=== PATIENT | female | born 1935 | race Asian ===

== ENCOUNTER 2016-04-15 15:52 | Inpatient (IN) | payer MEDICARE, OTHER ==
[~2016-04-15] VITALS: Ht 147.3 cm; Wt 69.0 kg
[~2016-04-15 15:52] MED LIST: ACET-66 PO; ATOR10TA84 PO; CALC-590 PO; GABA-531 PO; GLUC500T12 PO; MULTI VIT PO; TRAM50TA4 PO
[2016-04-15 17:14] LABS: BASOPHILS % (AUTO) 0.3 % (0.0-2.0); EOSINOPHILS % (AUTO) 8.7 % (1.0-6.0); HEMATOCRIT 38.9 % (36-46); HEMOGLOBIN 12.9 g/dL (12.0-16.0); LYMPHOCYTES # (AUTO) 2.1 K/uL (1.0-4.8); MEAN CORPUSCULAR HEMOGLOBIN 32.9 pg (26.0-34.0); MEAN CORPUSCULAR HGB CONC 33.3 G/dL (31.0-37.0); MEAN CORPUSCULAR VOLUME 99 fL (80-100); MONOCYTES % (AUTO) 15.5 % (2.0-9.0); NEUTROPHILS % (AUTO) 44.5 % (40.0-70.0); PLATELET COUNT (AUTO) 152 K/uL (150-450); RED BLOOD CELL COUNT(AUTO) 3.94 MIL/uL (4.00-5.20); RED CELL DISTRIBUTION WIDTH 13.5 % (11.5-14.5); WHITE BLOOD COUNT (AUTO) 6.8 K/uL (4.5-11.0)
[2016-04-15 17:30] LABS: CALCIUM, TOTAL 8.8 mg/dL (8.8-10.5); CREATININE 1.09 mg/dL (0.60-1.30); POTASSIUM 3.8 mmol/L (3.5-5.1)
[2016-04-15 17:36] LABS: ALBUMIN 2.9 g/dL (3.4-5.0); BILIRUBIN,TOTAL 0.3 mg/dL (0.1-1.0)
[2016-04-15 18:36] LABS: APPEARANCE,URINE CLOUDY (CLEAR); GLUCOSE, URINE (UA) NEGATIVE (NEGATIVE); KETONES,URINE NEGATIVE (NEGATIVE); LEUKOCYTE ESTERASE ,URINE SMALL (NEGATIVE); OCCULT BLOOD,URINE NEGATIVE (NEGATIVE); PH,URINE 6.5 (5.0-8.0); PROTEIN,URINE NEGATIVE (NEGATIVE)
[2016-04-15 18:42] LABS: ADD UA MICROSCOPIC YES; RBC,URINE 0-2 /HPF (0-2); SQUAMOUS EPITHELIAL CELL,UR Few /LPF (None Seen)
[2016-04-15] MEDS ORDERED: CEFTAROLINE FOSAMIL 400 MG in DEXTROSE 5%-WATER 250 ML IV ONE (20:15)
[2016-04-15] MEDS ORDERED: *CLINICAL-CEFTAROLINE DOSING CLINICAL ONE (20:45)
[2016-04-15] MEDS ORDERED: ONDANSETRON HCL 4 MG/2 ML VIAL IVP PRN (20:45)
[2016-04-15] MEDS ORDERED: ZOLPIDEM TARTRATE 10 MG TABLET PO PRN (20:45)
[2016-04-15 21:40] VITALS: BP 121/89
[2016-04-15] MEDS: GABAPENTIN 300 MG CAPSULE PO SCH (23:08)
[2016-04-15] MEDS: ATORVASTATIN CALCIUM 10 MG TABLET PO SCH (23:09)
[2016-04-15] MEDS: HEPARIN SODIUM,PORCINE 5,000 UNITS/ML VIAL SQ SCH (23:09)
[2016-04-15] MEDS: ACETAMINOPHEN 325 MG TABLET PO PRN (23:09)
[2016-04-15 23:53] VITALS: BP 136/56
[2016-04-16 04:30] VITALS: BP 113/51
[2016-04-16 06:37] LABS: BASOPHILS # (AUTO) 0.02 K/uL (0.00-0.20); BASOPHILS % (AUTO) 0.3 % (0.0-2.0); EOSINOPHILS # (AUTO) 0.57 K/uL (0.00-0.70); EOSINOPHILS % (AUTO) 9.36 % (1.0-6.0); HEMATOCRIT 32.7 % (36-46); HEMOGLOBIN 11.1 g/dL (12.0-16.0); LYMPHOCYTES # (AUTO) 1.7 K/uL (1.0-4.8); LYMPHOCYTES % (AUTO) 28.4 % (22.0-44.0); MEAN CORPUSCULAR HEMOGLOBIN 33.4 pg (26.0-34.0); MEAN CORPUSCULAR HGB CONC 34.1 G/dL (31.0-37.0); MEAN CORPUSCULAR VOLUME 98 fL (80-100); MONOCYTES % (AUTO) 16.4 % (2.0-9.0); NEUTROPHILS # (AUTO) 2.8 K/uL (1.8-7.7); NEUTROPHILS % (AUTO) 45.5 % (40.0-70.0); PLATELET COUNT (AUTO) 140 K/uL (150-450); RED BLOOD CELL COUNT(AUTO) 3.33 MIL/uL (4.00-5.20); RED CELL DISTRIBUTION WIDTH 13.3 % (11.5-14.5); WHITE BLOOD COUNT (AUTO) 6.1 K/uL (4.5-11.0)
[2016-04-16 06:53] LABS: ALBUMIN 2.4 g/dL (3.4-5.0); BILIRUBIN,TOTAL 0.6 mg/dL (0.1-1.0); CALCIUM, TOTAL 8.3 mg/dL (8.8-10.5); CREATININE 1.2 mg/dL (0.60-1.30); POTASSIUM 3.5 mmol/L (3.5-5.1); TOTAL PROTEIN, SERUM 6.5 g/dL (6.4-8.2)
[2016-04-16] MEDS: HEPARIN SODIUM,PORCINE 5,000 UNITS/ML VIAL SQ SCH ×3 (08:09→23:53)
[2016-04-16] MEDS: GABAPENTIN 300 MG CAPSULE PO SCH (08:09)
[2016-04-16] MEDS: PANTOPRAZOLE SODIUM 40 MG DR TABLET PO SCH (08:09)
[2016-04-16 08:10] VITALS: BP 101/46
[2016-04-16] MEDS ORDERED: SODIUM CHLORIDE 0.9% 500 ML IV ONE (09:00)
[2016-04-16] MEDS: CEFTAROLINE FOSAMIL 400 MG in DEXTROSE 5%-WATER 250 ML IV SCH ×2 (09:06→20:32)
[2016-04-16] MEDS: FUROSEMIDE 20 MG/2 ML VIAL IVP SCH ×2 (10:03→20:33)
[2016-04-16] MEDS: POTASSIUM CHLORIDE 10% 40 MEQ/30 ML LIQUID UDCUP PO SCH (10:03)
[2016-04-16 15:09] VITALS: BP 114/43
[2016-04-16 19:16] VITALS: BP 122/59
[2016-04-16] MEDS: ATORVASTATIN CALCIUM 10 MG TABLET PO SCH (20:32)
[2016-04-16] MEDS: ACETAMINOPHEN 325 MG TABLET PO PRN (20:33)
[2016-04-16 23:21] VITALS: BP 121/52
[2016-04-16] MEDS: OxyCODONE HCL/ACETAMINOPHEN 5-325 MG TABLET PO PRN (23:55)
[2016-04-17 04:43] VITALS: BP 117/47
[2016-04-17 06:34] LABS: BASOPHILS % (AUTO) 0.4 % (0.0-2.0); EOSINOPHILS % (AUTO) 9.2 % (1.0-6.0); HEMATOCRIT 33.9 % (36-46); HEMOGLOBIN 11.1 g/dL (12.0-16.0); LYMPHOCYTES # (AUTO) 2.2 K/uL (1.0-4.8); LYMPHOCYTES % (AUTO) 32.9 % (22.0-44.0); MEAN CORPUSCULAR HEMOGLOBIN 32.9 pg (26.0-34.0); MEAN CORPUSCULAR HGB CONC 32.9 G/dL (31.0-37.0); MEAN CORPUSCULAR VOLUME 100 fL (80-100); MONOCYTES # (AUTO) 1.1 K/uL (0.1-1.0); MONOCYTES % (AUTO) 16.8 % (2.0-9.0); NEUTROPHILS # (AUTO) 2.7 K/uL (1.8-7.7); NEUTROPHILS % (AUTO) 40.7 % (40.0-70.0); PLATELET COUNT (AUTO) 147 K/uL (150-450); RED BLOOD CELL COUNT(AUTO) 3.39 MIL/uL (4.00-5.20); RED CELL DISTRIBUTION WIDTH 13.9 % (11.5-14.5); WHITE BLOOD COUNT (AUTO) 6.6 K/uL (4.5-11.0)
[2016-04-17 06:55] LABS: ALBUMIN 2.3 g/dL (3.4-5.0); BILIRUBIN,TOTAL 0.5 mg/dL (0.1-1.0); CALCIUM, TOTAL 8.3 mg/dL (8.8-10.5); CREATININE 1.37 mg/dL (0.60-1.30); MAGNESIUM 2.1 mg/dL (1.80-2.40); POTASSIUM 3.9 mmol/L (3.5-5.1); TOTAL PROTEIN, SERUM 6.4 g/dL (6.4-8.2)
[2016-04-17 07:38] VITALS: BP 119/80
[2016-04-17 07:49] LABS: RBC MORPHOLOGY COMMENT ABNORMAL RBC MORPH
[2016-04-17] MEDS: OxyCODONE HCL/ACETAMINOPHEN 5-325 MG TABLET PO PRN (08:01)
[2016-04-17] MEDS: PANTOPRAZOLE SODIUM 40 MG DR TABLET PO SCH (08:02)
[2016-04-17] MEDS: FUROSEMIDE 20 MG/2 ML VIAL IVP SCH (08:02)
[2016-04-17] MEDS: POTASSIUM CHLORIDE 10% 40 MEQ/30 ML LIQUID UDCUP PO SCH (08:02)
[2016-04-17] MEDS: CEFTAROLINE FOSAMIL 400 MG in DEXTROSE 5%-WATER 250 ML IV SCH (08:03)
[2016-04-17] MEDS: HEPARIN SODIUM,PORCINE 5,000 UNITS/ML VIAL SQ SCH (08:03)
[2016-04-17] MEDS ORDERED: clindamycin PO (11:04)
[2016-04-17 11:19] VITALS: BP 99/43
== END 2016-04-17 14:40 | disposition home or self-care (01) | DRG 603 ==
LOC: EMS 15:55 → 6N 20:45
PROVIDERS: ADMIT Hospitalist; ATTEND Hospitalist
DX: L03.115 Cellulitis of right lower limb (principal); E44.0 Moderate protein-calorie malnutrition; I50.32 Chronic diastolic (congestive) heart failure; N39.0 Urinary tract infection, site not specified; L03.116 Cellulitis of left lower limb; E66.9 Obesity, unspecified; E78.00 Pure hypercholesterolemia, unspecified; E78.5 Hyperlipidemia, unspecified; I27.2 Other secondary pulmonary hypertension; I11.0 Hypertensive heart disease with heart failure; L29.9 Pruritus, unspecified; N28.9 Disorder of kidney and ureter, unspecified; T50.2X5A Adverse effect of carbonic-anhydrase inhibitors, benzothiadiazides and other diuretics, initial encounter; Z79.899 Other long term (current) drug therapy; Z68.38 Body mass index [BMI] 38.0-38.9, adult; Y92.89 Other specified places as the place of occurrence of the external cause; Y93.89 Activity, other specified; Y99.8 Other external cause status
CPT/HCPCS: 83735; 87086; 93005; 93306; 96374; 99285; J0712; J1644; J1940; J7040; J7060

== ENCOUNTER → 2016-06-04 | Outpatient (CLI) | payer MEDICARE, OTHER ==
[~2016-06-04] MED LIST changes: -GABA-531 PO; -TRAM50TA4 PO; +clindamycin PO
[2016-06-04 12:27] LABS: BASOPHILS % (AUTO) 0.6 % (0.0-2.0); EOSINOPHILS % (AUTO) 7.1 % (1.0-6.0); HEMATOCRIT 40.7 % (36-46); HEMOGLOBIN 13.5 g/dL (12.0-16.0); LYMPHOCYTES # (AUTO) 2.1 K/uL (1.0-4.8); LYMPHOCYTES % (AUTO) 33.7 % (22.0-44.0); MEAN CORPUSCULAR HGB CONC 33.3 G/dL (31.0-37.0); MEAN CORPUSCULAR VOLUME 99 fL (80-100); MONOCYTES # (AUTO) 0.9 K/uL (0.1-1.0); MONOCYTES % (AUTO) 14.1 % (2.0-9.0); NEUTROPHILS # (AUTO) 2.8 K/uL (1.8-7.7); NEUTROPHILS % (AUTO) 44.5 % (40.0-70.0); PLATELET COUNT (AUTO) 139 K/uL (150-450); RED BLOOD CELL COUNT(AUTO) 4.11 MIL/uL (4.00-5.20); RED CELL DISTRIBUTION WIDTH 13.8 % (11.5-14.5); WHITE BLOOD COUNT (AUTO) 6.3 K/uL (4.5-11.0)
[2016-06-04 12:44] LABS: ALBUMIN 3.2 g/dL (3.4-5.0); BILIRUBIN,TOTAL 0.8 mg/dL (0.1-1.0); CALCIUM, TOTAL 8.8 mg/dL (8.8-10.5); CHOL/HDL RATIO 2.1 (3.9-5.7); CREATININE 0.99 mg/dL (0.60-1.30); MAGNESIUM 2.1 mg/dL (1.80-2.40); POTASSIUM 3.7 mmol/L (3.5-5.1); THYROID STIMULATING HORMONE 1.76 uIU/mL (0.36-3.74); TOTAL PROTEIN, SERUM 8.3 g/dL (6.4-8.2)
[2016-06-04 12:46] LABS: HEMOGLOBIN A1C 5.6 % (4.5-6.2)
== END | disposition home or self-care (01) ==
LOC: LABPV 09:55
PROVIDERS: ATTEND Internal Medicine Cardiovascular Disease
DX: I11.0 Hypertensive heart disease with heart failure (principal); I50.9 Heart failure, unspecified; E11.8 Type 2 diabetes mellitus with unspecified complications; E55.9 Vitamin D deficiency, unspecified
CPT/HCPCS: 82306; 83036; 83735; 84439; 84443

== ENCOUNTER → 2016-07-13 | Outpatient (CLI) | payer MEDICARE, OTHER | END | disposition home or self-care (01) | LOC: RADPV 15:34 | PROVIDERS: ATTEND Internal Medicine | DX: M50.30 Other cervical disc degeneration, unspecified cervical region (principal); M47.812 Spondylosis without myelopathy or radiculopathy, cervical region; M43.12 Spondylolisthesis, cervical region; M12.88 Other specific arthropathies, not elsewhere classified, other specified site; M25.78 Osteophyte, vertebrae; M53.82 Other specified dorsopathies, cervical region; M25.512 Pain in left shoulder; M19.012 Primary osteoarthritis, left shoulder; M25.812 Other specified joint disorders, left shoulder; M75.102 Unspecified rotator cuff tear or rupture of left shoulder, not specified as traumatic; M81.8 Other osteoporosis without current pathological fracture | CPT/HCPCS: 72040 ==

== ENCOUNTER → 2016-11-30 | Outpatient (CLI) | payer MEDICARE, OTHER | END | disposition home or self-care (01) | LOC: RADMN 13:39 | PROVIDERS: ATTEND Internal Medicine | DX: M43.12 Spondylolisthesis, cervical region (principal); M50.321 Other cervical disc degeneration at C4-C5 level; M50.323 Other cervical disc degeneration at C6-C7 level; M48.02 Spinal stenosis, cervical region; M50.21 Other cervical disc displacement, high cervical region; M50.222 Other cervical disc displacement at C5-C6 level; M25.78 Osteophyte, vertebrae; M46.02 Spinal enthesopathy, cervical region | CPT/HCPCS: 72141 ==

== ENCOUNTER → 2016-12-21 | Outpatient (CLI) | payer MEDICARE, OTHER | END | disposition home or self-care (01) | LOC: RADPV 14:08 | PROVIDERS: ATTEND Internal Medicine | DX: M85.88 Other specified disorders of bone density and structure, other site (principal) | CPT/HCPCS: 77080 ==

== ENCOUNTER → 2018-08-21 | Outpatient (CLI) | payer MEDICARE, OTHER ==
[~2018-08-21] MED LIST changes: +ALBU8HFA IH; +ALEN70TA10 PO; +APIX2.5T PO; +ASPI-1182 PO; +BACL10TA PO; +BECL10.6 IH; +BIOT5000 PO; +CHOL200012 PO; +CYCL05OE OU; +ESOM20CA31 PO; +FOLI1 PO; +FURO20 PO; -GLUC500T12 PO; +LISI-661 PO; +METO25 PO; +ONDA4 PO; +OXYB5 PO; +PANT40TA25 PO; +PREG75 PO; -clindamycin PO
== END | disposition home or self-care (01) ==
LOC: RADPV 09:57
PROVIDERS: ATTEND Internal Medicine
DX: R09.89 Other specified symptoms and signs involving the circulatory and respiratory systems (principal)
CPT/HCPCS: 76536

== ENCOUNTER 2018-08-22 11:26 | Inpatient (IN) | payer MEDICARE, OTHER ==
[~2018-08-22] VITALS: Ht 144.8 cm; Wt 68.4 kg
[~2018-08-22 11:26] MED LIST changes: -APIX2.5T PO; -ESOM20CA31 PO; -METO25 PO; -ONDA4 PO; -PANT40TA25 PO
[2018-08-22] MEDS ORDERED: APIX2.5T PO (11:46)
[2018-08-22] MEDS ORDERED: METO25 PO (11:46)
[2018-08-22] MEDS ORDERED: ALBUTEROL SULFATE 2.5 MG/0.5 ML NEB SOLUTION NEB ONE ×2 (12:30→16:45)
[2018-08-22] MEDS ORDERED: IOVERSOL 320 MG/ML 100 ML VIAL ONE (12:31)
[2018-08-22] MEDS ORDERED: SODIUM CHLORIDE 0.9% 100 ML ONE (12:31)
[2018-08-22 12:52] LABS: BASOPHILS % (AUTO) 0.5 % (0.0-2.0); EOSINOPHILS % (AUTO) 2.2 % (1.0-6.0); HEMATOCRIT 33.2 % (36-46); HEMOGLOBIN 11.3 g/dL (12.0-16.0); LYMPHOCYTES # (AUTO) 1.8 K/uL (1.0-4.8); LYMPHOCYTES % (AUTO) 28.9 % (22.0-44.0); MEAN CORPUSCULAR HEMOGLOBIN 32.8 pg (26.0-34.0); MEAN CORPUSCULAR HGB CONC 33.9 G/dL (31.0-37.0); MEAN CORPUSCULAR VOLUME 97 fL (80-100); MONOCYTES # (AUTO) 0.7 K/uL (0.1-1.0); MONOCYTES % (AUTO) 11.8 % (2.0-9.0); NEUTROPHILS # (AUTO) 3.5 K/uL (1.8-7.7); NEUTROPHILS % (AUTO) 56.6 % (40.0-70.0); PLATELET COUNT (AUTO) 109 K/uL (150-450); RED BLOOD CELL COUNT(AUTO) 3.43 MIL/uL (4.00-5.20)
[2018-08-22 12:59] LABS: LIPASE 483 U/L (73-393)
[2018-08-22 13:01] LABS: INR 1.1 (0.9-1.1); PROTHROMBIN TIME 11.1 SEC (9.4-11.6)
[2018-08-22 13:14] LABS: B-TYPE NATRIURETIC PEPTIDE 566 pg/mL (0-100)
[2018-08-22 15:07] LABS: CALCIUM, TOTAL 8.4 mg/dL (8.8-10.5); CREATININE 1.37 mg/dL (0.60-1.30)
[2018-08-22 15:14] LABS: BILIRUBIN,TOTAL 0.4 mg/dL (0.1-1.0); TOTAL PROTEIN, SERUM 7.2 g/dL (6.4-8.2)
[2018-08-22] MEDS ORDERED: LEVOFLOXACIN 750 MG/D5% WATER 150 ML IV ONE (16:45)
[2018-08-22] MEDS ORDERED: MethylPREDNISolone SOD SUCC 125 MG/2 ML VIAL IVP ONE (16:45)
[2018-08-22] MEDS ORDERED: 0.9% SODIUM CHLORIDE 10 ML SYRINGE IVP PRN (17:00)
[2018-08-22] MEDS ORDERED: ONDANSETRON HCL 4 MG/2 ML VIAL IVP PRN (17:00)
[2018-08-22] MEDS ORDERED: PANTOPRAZOLE SODIUM 40 MG/VIAL IVP ONE (17:00)
[2018-08-22] MEDS ORDERED: ACETAMINOPHEN 325 MG TABLET PO PRN (17:00)
[2018-08-22 18:00] VITALS: BP 139/61
[2018-08-22] MEDS: PANTOPRAZOLE SODIUM 80 MG in SODIUM CHLORIDE 0.9% 100 ML IV SCH (18:54)
[2018-08-22 20:05] VITALS: BP 126/72
[2018-08-22 23:15] VITALS: BP 136/57
[2018-08-23] MEDS: PANTOPRAZOLE SODIUM 80 MG in SODIUM CHLORIDE 0.9% 100 ML IV SCH (03:49)
[2018-08-23 05:30] VITALS: BP 118/60
[2018-08-23 05:57] LABS: BASOPHILS % (AUTO) 0.1 % (0.0-2.0); EOSINOPHILS % (AUTO) 0 % (1.0-6.0); HEMATOCRIT 34.8 % (36-46); HEMOGLOBIN 11.7 g/dL (12.0-16.0); LYMPHOCYTES # (AUTO) 1.2 K/uL (1.0-4.8); LYMPHOCYTES % (AUTO) 22.3 % (22.0-44.0); MEAN CORPUSCULAR HEMOGLOBIN 32.7 pg (26.0-34.0); MEAN CORPUSCULAR HGB CONC 33.5 G/dL (31.0-37.0); MEAN CORPUSCULAR VOLUME 98 fL (80-100); MONOCYTES # (AUTO) 0.1 K/uL (0.1-1.0); MONOCYTES % (AUTO) 2.4 % (2.0-9.0); NEUTROPHILS % (AUTO) 75.2 % (40.0-70.0); PLATELET COUNT (AUTO) 120 K/uL (150-450); RED BLOOD CELL COUNT(AUTO) 3.57 MIL/uL (4.00-5.20)
[2018-08-23 06:29] LABS: ALBUMIN 2.7 g/dL (3.4-5.0); BILIRUBIN,TOTAL 0.4 mg/dL (0.1-1.0); CALCIUM, TOTAL 8.3 mg/dL (8.8-10.5); CREATININE 1.23 mg/dL (0.60-1.30); POTASSIUM 4.3 mmol/L (3.5-5.1); TOTAL PROTEIN, SERUM 6.8 g/dL (6.4-8.2)
[2018-08-23 07:31] VITALS: BP 112/66
[2018-08-23] MEDS ORDERED: MORPHINE SULFATE 2 MG/ML SYRINGE IVP PRN (09:00)
[2018-08-23] MEDS ORDERED: ONDANSETRON HCL 4 MG/2 ML VIAL IVP PRN (09:00)
[2018-08-23] MEDS ORDERED: ALBUTEROL SULFATE 2.5 MG/0.5 ML NEB SOLUTION NEB PRN (09:00)
[2018-08-23] MEDS: DOCUSATE SODIUM 250 MG CAPSULE PO SCH ×3 (09:00→20:42)
[2018-08-23] MEDS ORDERED: IPRATROPIUM BROMIDE 0.5 MG/2.5 ML NEB SOLUTION NEB PRN (09:00)
[2018-08-23] MEDS ORDERED: ZOLPIDEM TARTRATE 5 MG TABLET PO PRN (09:00)
[2018-08-23] MEDS ORDERED: 0.9% SODIUM CHLORIDE 10 ML SYRINGE IVP PRN (09:00)
[2018-08-23] MEDS ORDERED: BACLOFEN 10 MG TABLET PO PRN (09:15)
[2018-08-23] MEDS ORDERED: SODIUM CHLORIDE 0.9% 1,000 ML IV ONE ×2 (11:15→13:00)
[2018-08-23] MEDS: LISINOPRIL 10 MG TABLET PO SCH (12:00)
[2018-08-23 12:31] VITALS: BP 139/55
[2018-08-23] MEDS: METOPROLOL TARTRATE 25 MG TABLET PO SCH (12:46)
[2018-08-23] MEDS: FUROSEMIDE 20 MG TABLET PO SCH (12:46)
[2018-08-23] MEDS: BECLOMETHASONE DIPR HFA 40 MCG/PUFF 10.6 GM INHALER IH SCH ×2 (12:47→20:43)
[2018-08-23] MEDS: CycloSPORINE 0.05% 0.4 ML OPHTHALMIC EMULSION OU SCH ×2 (12:47→20:42)
[2018-08-23] MEDS: APIXABAN 2.5 MG TABLET PO SCH ×2 (12:47→20:42)
[2018-08-23] MEDS: BIOTIN 5 MG CAPSULE PO SCH (12:47)
[2018-08-23] MEDS: FOLIC ACID 1 MG TABLET PO SCH (12:47)
[2018-08-23] MEDS: PANTOPRAZOLE SODIUM 40 MG DR TABLET PO SCH ×2 (12:47→20:42)
[2018-08-23] MEDS: PREGABALIN 75 MG CAPSULE PO SCH (12:47)
[2018-08-23] MEDS: GuaiFENesin/D-METHORPHAN [SUGAR-FREE] 200-20MG/10 ML SYRUP UDCUP PO PRN (12:48)
[2018-08-23 14:34] LABS: % IRON SATURATION 29.4 % (22-44)
[2018-08-23 15:07] VITALS: BP 120/38
[2018-08-23 20:05] VITALS: BP 137/57
[2018-08-23] MEDS ORDERED: PREGABALIN 75 MG CAPSULE PO SCH (21:00)
[2018-08-23 23:58] VITALS: BP 110/46
[2018-08-24] MEDS ORDERED: LIDOCAINE/PF 2% 5 ML SYRINGE IVP ONE (04:12)
[2018-08-24] MEDS ORDERED: PHENYLEPHRINE HCL 10 MG/ML VIAL IVP ONE (04:12)
[2018-08-24 05:28] VITALS: BP 126/58
[2018-08-24 06:02] LABS: BASOPHILS % (AUTO) 0.5 % (0.0-2.0); EOSINOPHILS % (AUTO) 0.2 % (1.0-6.0); HEMATOCRIT 34.7 % (36-46); HEMOGLOBIN 11.6 g/dL (12.0-16.0); LYMPHOCYTES # (AUTO) 1.9 K/uL (1.0-4.8); LYMPHOCYTES % (AUTO) 23.2 % (22.0-44.0); MEAN CORPUSCULAR HEMOGLOBIN 32.7 pg (26.0-34.0); MEAN CORPUSCULAR HGB CONC 33.3 G/dL (31.0-37.0); MEAN CORPUSCULAR VOLUME 98 fL (80-100); MONOCYTES % (AUTO) 11.6 % (2.0-9.0); NEUTROPHILS # (AUTO) 5.4 K/uL (1.8-7.7); NEUTROPHILS % (AUTO) 64.5 % (40.0-70.0); PLATELET COUNT (AUTO) 138 K/uL (150-450); RED BLOOD CELL COUNT(AUTO) 3.54 MIL/uL (4.00-5.20); RED CELL DISTRIBUTION WIDTH 13.8 % (11.5-14.5)
[2018-08-24 06:17] LABS: HEMOGLOBIN A1C 5.7 % (4.5-6.2)
[2018-08-24 06:31] LABS: ALBUMIN 2.7 g/dL (3.4-5.0); BILIRUBIN,TOTAL 0.6 mg/dL (0.1-1.0); CALCIUM, TOTAL 7.5 mg/dL (8.8-10.5); CHOL/HDL RATIO 2.6 (3.9-5.7); CREATININE 1.38 mg/dL (0.60-1.30); POTASSIUM 4.4 mmol/L (3.5-5.1); THYROID STIMULATING HORMONE 0.61 uIU/mL (0.36-3.74); TOTAL PROTEIN, SERUM 6.7 g/dL (6.4-8.2)
[2018-08-24 07:34] VITALS: BP 141/61
[2018-08-24] MEDS: BECLOMETHASONE DIPR HFA 40 MCG/PUFF 10.6 GM INHALER IH SCH (08:24)
[2018-08-24] MEDS: APIXABAN 2.5 MG TABLET PO SCH (08:41)
[2018-08-24] MEDS: BIOTIN 5 MG CAPSULE PO SCH (08:41)
[2018-08-24] MEDS: FOLIC ACID 1 MG TABLET PO SCH (08:51)
[2018-08-24] MEDS: PREGABALIN 75 MG CAPSULE PO SCH (08:51)
[2018-08-24] MEDS: CycloSPORINE 0.05% 0.4 ML OPHTHALMIC EMULSION OU SCH (08:51)
[2018-08-24] MEDS: METOPROLOL TARTRATE 25 MG TABLET PO SCH (08:51)
[2018-08-24] MEDS: GuaiFENesin/D-METHORPHAN [SUGAR-FREE] 200-20MG/10 ML SYRUP UDCUP PO PRN (08:52)
[2018-08-24] MEDS: PANTOPRAZOLE SODIUM 40 MG DR TABLET PO SCH (08:52)
[2018-08-24] MEDS: DOCUSATE SODIUM 250 MG CAPSULE PO SCH ×2 (08:55→16:00)
[2018-08-24 11:42] VITALS: BP 119/50
[2018-08-24] MEDS: LISINOPRIL 10 MG TABLET PO SCH (12:11)
[2018-08-24] MEDS: FUROSEMIDE 20 MG TABLET PO SCH (13:06)
[2018-08-24] MEDS ORDERED: PANT40TA25 PO (13:50)
[2018-08-24] MEDS ORDERED: ESOM20CA31 PO (13:51)
[2018-08-24] MEDS ORDERED: ONDA4 PO (13:53)
[2018-08-24 15:56] VITALS: BP 112/46
== END 2018-08-24 16:55 | disposition home or self-care (01) | DRG 377 ==
LOC: EMS 11:30 → 5S 17:02
PROVIDERS: ADMIT Internal Medicine; ATTEND Internal Medicine
PROC: 0DJ08ZZ Inspection of Upper Intestinal Tract, Via Natural or Artificial Opening Endoscopic (ICD-10-PCS; principal; 2018-08-23 14:45)
DX: K26.4 Chronic or unspecified duodenal ulcer with hemorrhage (principal); K85.90 Acute pancreatitis without necrosis or infection, unspecified; I13.0 Hypertensive heart and chronic kidney disease with heart failure and stage 1 through stage 4 chronic kidney disease, or unspecified chronic kidney disease; I50.32 Chronic diastolic (congestive) heart failure; M48.56XA Collapsed vertebra, not elsewhere classified, lumbar region, initial encounter for fracture; K29.70 Gastritis, unspecified, without bleeding; K74.60 Unspecified cirrhosis of liver; E78.5 Hyperlipidemia, unspecified; D69.59 Other secondary thrombocytopenia; E78.00 Pure hypercholesterolemia, unspecified; K57.30 Diverticulosis of large intestine without perforation or abscess without bleeding; K80.20 Calculus of gallbladder without cholecystitis without obstruction; N18.3 Chronic kidney disease, stage 3 (moderate); D64.9 Anemia, unspecified; G62.9 Polyneuropathy, unspecified; M48.02 Spinal stenosis, cervical region; M48.061 Spinal stenosis, lumbar region without neurogenic claudication; Z79.82 Long term (current) use of aspirin; Z79.01 Long term (current) use of anticoagulants; Z79.899 Other long term (current) drug therapy
CPT/HCPCS: 74177; 76536; 82271; 82728; 83036; 83540; 83550; 84443; 86850; 86900; 86901; 87081; 88305; 88312; 88313; 93005; 94640; 97116; 97162; C9113; G0378; J1956; J2370; J2930; J3490; J3535; J7030; J7050

== ENCOUNTER 2018-09-11 10:11 | Emergency (ER) | payer MEDICARE, OTHER ==
[~2018-09-11] VITALS: Ht 137.2 cm; Wt 67.3 kg
[~2018-09-11 10:11] MED LIST changes: -ALEN70TA10 PO; +APIX2.5T PO; -ASPI-1182 PO; +ESOM20CA31 PO; +METO25 PO; +ONDA4 PO; +PANT40TA25 PO
[2018-09-11 12:14] LABS: BASOPHILS % (AUTO) 0.4 % (0.0-2.0); EOSINOPHILS % (AUTO) 5.2 % (1.0-6.0); HEMATOCRIT 35.8 % (36-46); HEMOGLOBIN 11.7 g/dL (12.0-16.0); LYMPHOCYTES # (AUTO) 1.4 K/uL (1.0-4.8); LYMPHOCYTES % (AUTO) 27.3 % (22.0-44.0); MEAN CORPUSCULAR HEMOGLOBIN 33.3 pg (26.0-34.0); MEAN CORPUSCULAR HGB CONC 32.7 G/dL (31.0-37.0); MEAN CORPUSCULAR VOLUME 102 fL (80-100); MONOCYTES # (AUTO) 0.6 K/uL (0.1-1.0); MONOCYTES % (AUTO) 12.2 % (2.0-9.0); NEUTROPHILS # (AUTO) 2.8 K/uL (1.8-7.7); NEUTROPHILS % (AUTO) 54.9 % (40.0-70.0); PLATELET COUNT (AUTO) 125 K/uL (150-450); RED BLOOD CELL COUNT(AUTO) 3.52 MIL/uL (4.00-5.20); RED CELL DISTRIBUTION WIDTH 14.7 % (11.5-14.5)
[2018-09-11 12:34] LABS: CALCIUM, TOTAL 9.2 mg/dL (8.8-10.5); CREATININE 1.4 mg/dL (0.60-1.30); POTASSIUM 4.3 mmol/L (3.5-5.1)
[2018-09-11 12:37] LABS: LACTIC ACID 0.9 mmol/L (0.4-2.0)
[2018-09-11 12:44] LABS: ALBUMIN 3.5 g/dL (3.4-5.0); BILIRUBIN,TOTAL 0.4 mg/dL (0.1-1.0); TOTAL PROTEIN, SERUM 7.7 g/dL (6.4-8.2)
[2018-09-11 13:54] LABS: APPEARANCE,URINE CLEAR (CLEAR); BILIRUBIN,URINE NEGATIVE (NEGATIVE); GLUCOSE, URINE (UA) NEGATIVE (NEGATIVE); KETONES,URINE NEGATIVE (NEGATIVE); LEUKOCYTE ESTERASE ,URINE TRACE (NEGATIVE); NITRATE,URINE NEGATIVE (NEGATIVE); OCCULT BLOOD,URINE NEGATIVE (NEGATIVE); PROTEIN,URINE NEGATIVE (NEGATIVE); UROBILINOGEN,URINE 0.2 mg/dL (<=1.0)
[2018-09-11 14:27] LABS: BACTERIA,URINE None Seen /HPF (None Seen); RBC,URINE 0-2 /HPF (0-2); WBC,URINE 0-2 /HPF (0-5)
[2018-09-11 14:45] VITALS: BP 129/62
== END 2018-09-11 14:57 | disposition home or self-care (01) ==
LOC: EMS 10:13
DX: K29.80 Duodenitis without bleeding (principal); K20.9 Esophagitis, unspecified; K92.1 Melena; R53.1 Weakness; I10 Essential (primary) hypertension; E78.00 Pure hypercholesterolemia, unspecified; Z79.899 Other long term (current) drug therapy
CPT/HCPCS: 74176; 82271; 83605; 87040; 93005

== ENCOUNTER → 2018-09-22 | Outpatient (CLI) | payer MEDICARE, OTHER | END | disposition home or self-care (01) | LOC: RADMN 13:12 | PROVIDERS: ATTEND Internal Medicine Pulmonary Disease | DX: I71.2 Thoracic aortic aneurysm, without rupture (principal); I70.0 Atherosclerosis of aorta; K80.20 Calculus of gallbladder without cholecystitis without obstruction; K74.60 Unspecified cirrhosis of liver | CPT/HCPCS: 71250 ==

== ENCOUNTER 2018-12-18 09:25 | Inpatient (IN) | payer MEDICARE, OTHER ==
[~2018-12-18] VITALS: Ht 149.9 cm; Wt 65.9 kg
[~2018-12-18 09:25] MED LIST changes: +ONDA-104 PO; -ONDA4 PO
[2018-12-18] MEDS ORDERED: MORPHINE SULFATE 2 MG/ML SYRINGE IVP ONE ×2 (10:00→11:30)
[2018-12-18] MEDS ORDERED: ACETAMINOPHEN 325 MG TABLET PO ONE (10:00)
[2018-12-18 10:16] LABS: BASOPHILS % (AUTO) 0.5 % (0.0-2.0); HEMOGLOBIN 13.1 g/dL (12.0-16.0); LYMPHOCYTES # (AUTO) 1.4 K/uL (1.0-4.8); LYMPHOCYTES % (AUTO) 20.5 % (22.0-44.0); MEAN CORPUSCULAR HEMOGLOBIN 34.8 pg (26.0-34.0); MEAN CORPUSCULAR HGB CONC 33.7 G/dL (31.0-37.0); MEAN CORPUSCULAR VOLUME 103 fL (80-100); MONOCYTES # (AUTO) 0.8 K/uL (0.1-1.0); MONOCYTES % (AUTO) 11.6 % (2.0-9.0); NEUTROPHILS # (AUTO) 4.4 K/uL (1.8-7.7); NEUTROPHILS % (AUTO) 65.4 % (40.0-70.0); PLATELET COUNT (AUTO) 147 K/uL (150-450); RED BLOOD CELL COUNT(AUTO) 3.77 MIL/uL (4.00-5.20)
[2018-12-18 10:24] LABS: CALCIUM, TOTAL 8.8 mg/dL (8.8-10.5); CREATININE 1.08 mg/dL (0.60-1.30); POTASSIUM 4.2 mmol/L (3.5-5.1)
[2018-12-18 11:29] LABS: ERYTHROCYTE SEDIMENTATION RATE 28 MM/HR (0-20)
[2018-12-18] MEDS ORDERED: KETOROLAC TROMETHAMINE 30 MG/ML VIAL IVP ONE (11:30)
[2018-12-18] MEDS ORDERED: ACETAMINOPHEN 325 MG TABLET PO PRN (13:15)
[2018-12-18] MEDS ORDERED: HYDROCODONE/ACETAMINOPHEN 5-325 MG TABLET PO PRN (13:15)
[2018-12-18] MEDS ORDERED: ONDANSETRON HCL 4 MG/2 ML VIAL IVP PRN ×2 (13:15→17:15)
[2018-12-18] MEDS ORDERED: MORPHINE SULFATE 2 MG/ML SYRINGE IVP PRN ×2 (13:15→17:15)
[2018-12-18 14:36] VITALS: BP 142/62
[2018-12-18] MEDS ORDERED: 0.9% SODIUM CHLORIDE 10 ML SYRINGE IVP PRN ×2 (17:15)
[2018-12-18] MEDS ORDERED: ONDANSETRON HCL 4 MG TABLET PO PRN (17:15)
[2018-12-18] MEDS ORDERED: ALBUTEROL SULFATE 2.5 MG/0.5 ML NEB SOLUTION NEB PRN (17:15)
[2018-12-18] MEDS ORDERED: IPRATROPIUM BROMIDE 0.5 MG/2.5 ML NEB SOLUTION NEB PRN (17:15)
[2018-12-18] MEDS ORDERED: ACETAMINOPHEN 500 MG TABLET PO PRN (17:15)
[2018-12-18] MEDS ORDERED: BACLOFEN 10 MG TABLET PO PRN (17:15)
[2018-12-18] MEDS ORDERED: ATOR20TA86 PO (17:30)
[2018-12-18] MEDS ORDERED: MULT1TAB70 PO (17:30)
[2018-12-18] MEDS ORDERED: OS500 PO (17:30)
[2018-12-18] MEDS ORDERED: CHOL100018 PO (17:30)
[2018-12-18] MEDS: BIOTIN 5 MG CAPSULE PO SCH (18:28)
[2018-12-18] MEDS: APIXABAN 2.5 MG TABLET PO SCH (18:28)
[2018-12-18 20:16] VITALS: BP_SYST 136; BP_SYST 140; BP_DIAS 58; BP_DIAS 63
[2018-12-18] MEDS: BECLOMETHASONE DIPR HFA 40 MCG/PUFF 10.6 GM INHALER IH SCH (20:55)
[2018-12-18] MEDS: CycloSPORINE 0.05% 0.4 ML OPHTHALMIC EMULSION OU SCH (20:55)
[2018-12-18] MEDS: DOCUSATE SODIUM 250 MG CAPSULE PO SCH (20:55)
[2018-12-18] MEDS: PANTOPRAZOLE SODIUM 40 MG DR TABLET PO SCH (20:56)
[2018-12-18] MEDS: PREGABALIN 75 MG CAPSULE PO SCH (20:56)
[2018-12-18] MEDS: METOPROLOL TARTRATE 25 MG TABLET PO SCH (20:56)
[2018-12-18] MEDS: ATORVASTATIN CALCIUM 20 MG TABLET PO SCH (20:56)
[2018-12-19] VITALS: BP 131/72
[2018-12-19 04:00] VITALS: BP 164/73
[2018-12-19] MEDS: HYDROCODONE/ACETAMINOPHEN 5-325 MG TABLET PO PRN (05:02)
[2018-12-19] MEDS: FUROSEMIDE 20 MG TABLET PO SCH (10:27)
[2018-12-19] MEDS: APIXABAN 2.5 MG TABLET PO SCH ×2 (10:27→17:43)
[2018-12-19] MEDS: LISINOPRIL 10 MG TABLET PO SCH (10:27)
[2018-12-19] MEDS: BIOTIN 5 MG CAPSULE PO SCH (10:27)
[2018-12-19] MEDS: PANTOPRAZOLE SODIUM 40 MG DR TABLET PO SCH ×2 (10:27→20:45)
[2018-12-19] MEDS: DOCUSATE SODIUM 250 MG CAPSULE PO SCH ×3 (10:27→20:46)
[2018-12-19] MEDS: CycloSPORINE 0.05% 0.4 ML OPHTHALMIC EMULSION OU SCH ×2 (10:28→20:46)
[2018-12-19] MEDS: BECLOMETHASONE DIPR HFA 40 MCG/PUFF 10.6 GM INHALER IH SCH ×2 (10:28→20:48)
[2018-12-19 10:35] VITALS: BP 122/60
[2018-12-19] MEDS: CHOLECALCIFEROL (VIT D3) 1,000 UNITS TABLET PO SCH (13:57)
[2018-12-19] MEDS: CALCITONIN,SALMON,SYNTHETIC 200 UNITS/SPRAY 3.7 ML BOTTLE NASAL SCH (13:58)
[2018-12-19] MEDS: LIDOCAINE 5% TRANSDERMAL PATCH TD SCH (13:58)
[2018-12-19 14:00] VITALS: BP 137/60
[2018-12-19 16:38] VITALS: BP 130/51
[2018-12-19] MEDS: CALCIUM CARBONATE 500 MG CHEWABLE TABLET CHEW SCH ×2 (18:23→20:46)
[2018-12-19 18:47] LABS: BASOPHILS % (AUTO) 0.5 % (0.0-2.0); EOSINOPHILS % (AUTO) 2.3 % (1.0-6.0); HEMATOCRIT 37.2 % (36-46); HEMOGLOBIN 12.5 g/dL (12.0-16.0); LYMPHOCYTES # (AUTO) 1.1 K/uL (1.0-4.8); LYMPHOCYTES % (AUTO) 16.8 % (22.0-44.0); MEAN CORPUSCULAR HEMOGLOBIN 34.6 pg (26.0-34.0); MEAN CORPUSCULAR HGB CONC 33.6 G/dL (31.0-37.0); MEAN CORPUSCULAR VOLUME 103 fL (80-100); MONOCYTES # (AUTO) 0.8 K/uL (0.1-1.0); MONOCYTES % (AUTO) 12.6 % (2.0-9.0); NEUTROPHILS # (AUTO) 4.3 K/uL (1.8-7.7); NEUTROPHILS % (AUTO) 67.8 % (40.0-70.0); PLATELET COUNT (AUTO) 162 K/uL (150-450); RED BLOOD CELL COUNT(AUTO) 3.62 MIL/uL (4.00-5.20)
[2018-12-19 18:58] LABS: INR 1.1 (0.9-1.1); PROTHROMBIN TIME 10.7 SEC (9.4-11.6)
[2018-12-19 19:00] LABS: HEMOGLOBIN A1C 5.5 % (4.5-6.2)
[2018-12-19 19:11] LABS: CHOL/HDL RATIO 2.4 (3.9-5.7); THYROID STIMULATING HORMONE 0.92 uIU/mL (0.36-3.74)
[2018-12-19 20:22] VITALS: BP 123/63
[2018-12-19] MEDS: ATORVASTATIN CALCIUM 20 MG TABLET PO SCH (20:45)
[2018-12-19] MEDS: PREGABALIN 75 MG CAPSULE PO SCH (20:46)
[2018-12-19] MEDS: METOPROLOL TARTRATE 25 MG TABLET PO SCH (20:47)
[2018-12-19] MEDS ORDERED: -LIDODERM PATCH NOTE- MISC SCH (21:00)
[2018-12-20 00:37] VITALS: BP 152/71
[2018-12-20 05:38] VITALS: BP 182/70
[2018-12-20] MEDS: HYDROCODONE/ACETAMINOPHEN 5-325 MG TABLET PO PRN (05:48)
[2018-12-20 07:30] LABS: VITAMIN B12 LEVEL 593 pg/mL (211-911)
[2018-12-20 08:19] LABS: ALBUMIN 2.8 g/dL (3.4-5.0); BILIRUBIN,TOTAL 0.8 mg/dL (0.1-1.0); CALCIUM, TOTAL 9.4 mg/dL (8.8-10.5); CREATININE 0.93 mg/dL (0.60-1.30); POTASSIUM 4.3 mmol/L (3.5-5.1); TOTAL PROTEIN, SERUM 7.5 g/dL (6.4-8.2)
[2018-12-20 08:51] VITALS: BP 171/75
[2018-12-20] MEDS: DOCUSATE SODIUM 250 MG CAPSULE PO SCH (09:22)
[2018-12-20] MEDS: CHOLECALCIFEROL (VIT D3) 1,000 UNITS TABLET PO SCH (09:22)
[2018-12-20] MEDS: BIOTIN 5 MG CAPSULE PO SCH (09:22)
[2018-12-20] MEDS: PANTOPRAZOLE SODIUM 40 MG DR TABLET PO SCH (09:22)
[2018-12-20] MEDS: CALCIUM CARBONATE 500 MG CHEWABLE TABLET CHEW SCH (09:22)
[2018-12-20] MEDS: APIXABAN 2.5 MG TABLET PO SCH (09:22)
[2018-12-20] MEDS: BECLOMETHASONE DIPR HFA 40 MCG/PUFF 10.6 GM INHALER IH SCH (09:23)
[2018-12-20] MEDS: LIDOCAINE 5% TRANSDERMAL PATCH TD SCH (09:24)
[2018-12-20] MEDS: CycloSPORINE 0.05% 0.4 ML OPHTHALMIC EMULSION OU SCH (09:30)
[2018-12-20] MEDS: CALCITONIN,SALMON,SYNTHETIC 200 UNITS/SPRAY 3.7 ML BOTTLE NASAL SCH (10:29)
[2018-12-20] MEDS: FUROSEMIDE 20 MG TABLET PO SCH (12:06)
[2018-12-20] MEDS: LISINOPRIL 10 MG TABLET PO SCH (12:06)
[2018-12-20 13:56] VITALS: BP 153/67
[2018-12-20] MEDS ORDERED: LIDO113G3 TP (15:52)
[2018-12-20] MEDS ORDERED: DOCU-342 PO (15:53)
[2018-12-20] MEDS ORDERED: [UNRECOGNIZED DRUG - CODE] NASAL (15:53)
[2018-12-20] MEDS ORDERED: ASPI-556 PO (15:54)
[2018-12-20 16:05] VITALS: BP 158/73
== END 2018-12-20 16:47 | disposition home health service (06) | DRG 543 ==
LOC: EMS 09:26 → 4E 13:50 → UNDODISIN 15:00
PROVIDERS: ADMIT Internal Medicine; ATTEND Internal Medicine
DX: M48.56XA Collapsed vertebra, not elsewhere classified, lumbar region, initial encounter for fracture (principal); I13.0 Hypertensive heart and chronic kidney disease with heart failure and stage 1 through stage 4 chronic kidney disease, or unspecified chronic kidney disease; I50.32 Chronic diastolic (congestive) heart failure; M48.57XA Collapsed vertebra, not elsewhere classified, lumbosacral region, initial encounter for fracture; K74.60 Unspecified cirrhosis of liver; G89.29 Other chronic pain; N18.3 Chronic kidney disease, stage 3 (moderate); F32.9 Major depressive disorder, single episode, unspecified; Z60.2 Problems related to living alone; E78.5 Hyperlipidemia, unspecified; M25.561 Pain in right knee; M25.562 Pain in left knee; R26.2 Difficulty in walking, not elsewhere classified; G62.9 Polyneuropathy, unspecified; D63.8 Anemia in other chronic diseases classified elsewhere; E78.00 Pure hypercholesterolemia, unspecified; M48.061 Spinal stenosis, lumbar region without neurogenic claudication; M81.0 Age-related osteoporosis without current pathological fracture; Z79.899 Other long term (current) drug therapy; Z87.11 Personal history of peptic ulcer disease; Z79.01 Long term (current) use of anticoagulants; Z98.42 Cataract extraction status, left eye; Z98.41 Cataract extraction status, right eye
CPT/HCPCS: 72070; 72100; 72146; 72148; 82607; 82746; 83036; 84443; 85651; 93005; 96374; 96375; 97116; 97162; 97166; 97530; 97535; G0378; J1885; J2270; J3535; Q0162

== ENCOUNTER 2019-01-01 10:33 | Emergency (ER) | payer MEDICARE, OTHER ==
[~2019-01-01] VITALS: Ht 149.9 cm; Wt 66.8 kg
[~2019-01-01 10:33] MED LIST changes: -APIX2.5T PO; +ASPI-556 PO; -ATOR10TA84 PO; +ATOR20TA86 PO; -BIOT5000 PO; -CALC-590 PO; +CHOL100018 PO; -CHOL200012 PO; +DOCU-342 PO; +LIDO113G3 TP; +MULT1TAB70 PO; -MULTI VIT PO; -ONDA-104 PO; +OS500 PO; -OXYB5 PO; -PANT40TA25 PO; +[UNRECOGNIZED DRUG - CODE] NASAL
[2019-01-01] MEDS ORDERED: MORPHINE SULFATE 4 MG/ML SYRINGE IVP ONE (13:00)
[2019-01-01 18:00] VITALS: BP 141/78
== END 2019-01-01 18:13 | disposition home or self-care (01) ==
LOC: EMS 10:34
DX: S32.009A Unspecified fracture of unspecified lumbar vertebra, initial encounter for closed fracture (principal); M79.605 Pain in left leg; E78.00 Pure hypercholesterolemia, unspecified; I10 Essential (primary) hypertension; Z79.899 Other long term (current) drug therapy; Z79.82 Long term (current) use of aspirin; W18.39XA Other fall on same level, initial encounter; Y93.89 Activity, other specified; Y92.89 Other specified places as the place of occurrence of the external cause; Y99.8 Other external cause status
CPT/HCPCS: 72131; 73503; 73552; 96374; 99284; J2270

== ENCOUNTER 2019-01-18 14:29 | Emergency (ER) | payer MEDICARE, OTHER ==
[~2019-01-18] VITALS: Ht 149.9 cm; Wt 66.8 kg
[2019-01-18] MEDS ORDERED: 0.9% SODIUM CHLORIDE 10 ML SYRINGE IVP PRN (17:30)
[2019-01-18 18:16] LABS: BASOPHILS % (AUTO) 1.2 % (0.0-2.0); EOSINOPHILS % (AUTO) 3.2 % (1.0-6.0); HEMATOCRIT 38.3 % (36-46); HEMOGLOBIN 12.8 g/dL (12.0-16.0); LYMPHOCYTES # (AUTO) 1.3 K/uL (1.0-4.8); LYMPHOCYTES % (AUTO) 22.6 % (22.0-44.0); MEAN CORPUSCULAR HEMOGLOBIN 34.9 pg (26.0-34.0); MEAN CORPUSCULAR HGB CONC 33.5 G/dL (31.0-37.0); MEAN CORPUSCULAR VOLUME 104 fL (80-100); MONOCYTES # (AUTO) 0.9 K/uL (0.1-1.0); MONOCYTES % (AUTO) 15.4 % (2.0-9.0); NEUTROPHILS # (AUTO) 3.3 K/uL (1.8-7.7); NEUTROPHILS % (AUTO) 57.6 % (40.0-70.0); PLATELET COUNT (AUTO) 183 K/uL (150-450); RED BLOOD CELL COUNT(AUTO) 3.68 MIL/uL (4.00-5.20); RED CELL DISTRIBUTION WIDTH 14.4 % (11.5-14.5)
[2019-01-18 18:29] LABS: PROTHROMBIN TIME 10.4 SEC (9.4-11.6)
[2019-01-18 18:30] LABS: CALCIUM, TOTAL 9.1 mg/dL (8.8-10.5); CREATININE 1.19 mg/dL (0.60-1.30); POTASSIUM 3.4 mmol/L (3.5-5.1)
[2019-01-18 18:48] LABS: LACTIC ACID 1.2 mmol/L (0.4-2.0)
[2019-01-18 18:57] LABS: ALBUMIN 2.9 g/dL (3.4-5.0); BILIRUBIN,TOTAL 0.5 mg/dL (0.1-1.0); TOTAL PROTEIN, SERUM 7.7 g/dL (6.4-8.2)
[2019-01-18 19:11] LABS: APPEARANCE,URINE TURBID (CLEAR); BILIRUBIN,URINE NEGATIVE (NEGATIVE); GLUCOSE, URINE (UA) NEGATIVE (NEGATIVE); KETONES,URINE NEGATIVE (NEGATIVE); LEUKOCYTE ESTERASE ,URINE MODERATE (NEGATIVE); NITRATE,URINE NEGATIVE (NEGATIVE); OCCULT BLOOD,URINE NEGATIVE (NEGATIVE); PROTEIN,URINE POS 1+ (NEGATIVE)
[2019-01-18 19:29] LABS: BACTERIA,URINE Many /HPF (None Seen)
[2019-01-18 19:30] LABS: WBC,URINE 0-2 /HPF (0-5)
[2019-01-18 19:31] LABS: YEAST,URINE Few /HPF (None Seen)
[2019-01-18 19:43] LABS: SQUAMOUS EPITHELIAL CELL,UR Few /LPF (None Seen)
[2019-01-18] MEDS ORDERED: TraMADol HCL 50 MG TABLET PO ONE (20:15)
[2019-01-18] MEDS ORDERED: POTASSIUM CHLORIDE 20 MEQ ER TABLET PO ONE (20:15)
[2019-01-18 21:05] VITALS: BP 148/74
== END 2019-01-18 21:15 | disposition home or self-care (01) ==
LOC: EMS 14:30
DX: E87.6 Hypokalemia (principal); E78.00 Pure hypercholesterolemia, unspecified; I10 Essential (primary) hypertension; Z98.890 Other specified postprocedural states; Z79.899 Other long term (current) drug therapy; W18.39XA Other fall on same level, initial encounter; Y93.89 Activity, other specified; Y92.89 Other specified places as the place of occurrence of the external cause; Y99.8 Other external cause status
CPT/HCPCS: 83605; 87040; 87086; 93005